=== PATIENT | male | born 1965 | race Caucasian/White ===

== ENCOUNTER 2023-06-05 16:40 | Inpatient (IN) | payer OTHER ==
[~2023-06-05] VITALS: Ht 170.2 cm; Wt 66.6 kg
[2023-06-05 17:17] LABS: BASOPHILS % (AUTO) 0.5 % (0.0-2.0); EOSINOPHILS % (AUTO) 0 % (1.0-6.0); HEMATOCRIT 43.1 % (41-53); HEMOGLOBIN 14.7 g/dL (13.5-17.5); LYMPHOCYTES # (AUTO) 0.9 K/uL (1.0-4.8); MEAN CORPUSCULAR HEMOGLOBIN 28.9 pg (26.0-34.0); MEAN CORPUSCULAR HGB CONC 34.2 G/dL (31.0-37.0); MEAN CORPUSCULAR VOLUME 85 fL (80-100); MONOCYTES # (AUTO) 0.4 K/uL (0.1-1.0); MONOCYTES % (AUTO) 3.9 % (2.0-9.0); NEUTROPHILS # (AUTO) 7.9 K/uL (1.8-7.7); PLATELET COUNT (AUTO) 321 K/uL (150-450); RED CELL DISTRIBUTION WIDTH 13.8 % (11.5-14.5); WHITE BLOOD COUNT (AUTO) 9.2 K/uL (4.5-11.0)
[2023-06-05 17:19] LABS: NEUTROPHILS % (AUTO) 85.6 % (40.0-70.0)
[2023-06-05 17:25] LABS: ANION GAP 10 mmol/L (8-16); CALCIUM, TOTAL 9.5 mg/dL (8.8-10.5); CARBON DIOXIDE 30 mmol/L (22-29); CHLORIDE 98 mmol/L (98-107); CREATININE 0.62 mg/dL (0.60-1.30); GLOMERULAR FILTR. RATE CALC > 60 mL/min (>60); GLUCOSE,RANDOM 112 mg/dL (70-110); POTASSIUM 3.5 mmol/L (3.5-5.1); SODIUM SERUM 138 mmol/L (136-145); UREA NITROGEN, BLOOD 13 mg/dL (7-18)
[2023-06-05] MEDS ORDERED: SERT-439 PO (17:29)
[2023-06-05] MEDS ORDERED: SOFO1TAB3 PO (17:29)
[2023-06-05] MEDS ORDERED: TRAZ-252 PO (17:29)
[2023-06-05] MEDS ORDERED: SERT-438 PO (17:29)
[2023-06-05 17:31] LABS: ALANINE AMINOTRANSFERASE 14 U/L (12-78); ALBUMIN 3.6 g/dL (3.4-5.0); ALKALINE PHOSPHATASE 132 U/L (46-116); ASPARTATE AMINOTRANSFERASE 16 U/L (15-37); BILIRUBIN,TOTAL 0.7 mg/dL (0.1-1.0); TOTAL PROTEIN, SERUM 8.5 g/dL (6.4-8.2)
[2023-06-05 17:43] LABS: LACTIC ACID 1.3 mmol/L (0.4-2.0)
[2023-06-05 17:49] LABS: COVID AG,FIA SOURCE NASAL SWAB
[2023-06-05 18:09] LABS: SARS-COV2 (COVID) ANTIGEN,FIA Negative (Negative)
[2023-06-05 18:11] LABS: ALCOHOL, BLOOD (SERUM) < 3 mg/dL (0-10)
[2023-06-05] MEDS ORDERED: ACETAMINOPHEN 325 MG TABLET PO PRN ×3 (18:15→19:45)
[2023-06-05] MEDS: KETOROLAC TROMETHAMINE 30 MG/ML VIAL IVP ONE (18:15)
[2023-06-05] MEDS: ACETAMINOPHEN 500 MG TABLET PO ONE (18:15)
[2023-06-05] MEDS: ONDANSETRON HCL 4 MG/2 ML VIAL IVP ONE (18:15)
[2023-06-05] MEDS ORDERED: ONDANSETRON HCL 4 MG/2 ML VIAL IVP PRN ×2 (18:15→19:45)
[2023-06-05] MEDS ORDERED: 0.9% SODIUM CHLORIDE 10 ML SYRINGE IVP PRN (18:15)
[2023-06-05] MEDS: HydrOXYzine HCL 25 MG TABLET PO ONE (18:55)
[2023-06-05] MEDS ORDERED: PROMETHAZINE HCL 25 MG TABLET PO PRN (19:45)
[2023-06-05] MEDS ORDERED: IPRATROPIUM BROMIDE 0.5 MG/2.5 ML NEB SOLUTION NEB PRN (19:45)
[2023-06-05] MEDS ORDERED: LOPERAMIDE HCL 2 MG/15 ML SUSPENSION UDCUP PO PRN (19:45)
[2023-06-05] MEDS ORDERED: HYDROCODONE/ACETAMINOPHEN 5-325 MG TABLET PO PRN (19:45)
[2023-06-05] MEDS ORDERED: CloNIDine HCL 0.1 MG TABLET PO PRN (19:45)
[2023-06-05] MEDS ORDERED: BACLOFEN 10 MG TABLET PO PRN (19:45)
[2023-06-05] MEDS ORDERED: MORPHINE SULFATE 2 MG/ML SYRINGE IVP PRN (19:45)
[2023-06-05] MEDS ORDERED: MAGNESIUM HYDROXIDE SUSPENSION 30 ML UDCUP PO PRN (19:45)
[2023-06-05] MEDS ORDERED: LORazepam 2 MG/ML VIAL IVP PRN (19:45)
[2023-06-05] MEDS ORDERED: MAG HYDROX/ALUMINUM HYD/SIMETH ES 30 ML SUSPENSION UDCUP PO PRN (19:45)
[2023-06-05] MEDS ORDERED: LORazepam 1 MG TABLET PO PRN (19:45)
[2023-06-05] MEDS ORDERED: TraZODone HCL 50 MG TABLET PO PRN (19:45)
[2023-06-05] MEDS ORDERED: ALBUTEROL SULFATE 2.5 MG/0.5 ML NEB SOLUTION NEB PRN (19:45)
[2023-06-05] MEDS ORDERED: DICYCLOMINE HCL 10 MG CAPSULE PO PRN (19:45)
[2023-06-05] MEDS ORDERED: BISACODYL 10 MG RECTAL RECTAL SUPPOSITORY PR PRN (19:45)
[2023-06-05 20:35] LABS: ALCOHOL, URINE DRUG SCREEN NEGATIVE (NEGATIVE); AMPHET/METH SCREEN,URINE POSITIVE (NEGATIVE); BARBITURATE SCREEN, URINE NEGATIVE (NEGATIVE); BENZODIAZEPINES SCREEN,URINE POSITIVE (NEGATIVE); CANNABINOID SCREEN,URINE NEGATIVE (NEGATIVE); COCAINE SCREEN,URINE NEGATIVE (NEGATIVE); METHADONE SCREEN, URINE NEGATIVE (NEGATIVE); OPIATE SCREEN,URINE POSITIVE (NEGATIVE); PHENCYCLIDINE SCREEN,URINE NEGATIVE (NEGATIVE)
[2023-06-05 21:04] VITALS: BP 125/76; PULSE 64; RESP 19; TEMP 98
[2023-06-05] MEDS: SODIUM CHLORIDE 0.45% 1,000 ML IV SCH (23:07)
[2023-06-05] MEDS: TraZODone HCL 50 MG TABLET PO SCH (23:07)
[2023-06-05] MEDS: HEPARIN SODIUM,PORCINE 5,000 UNITS/ML VIAL SQ SCH (23:07)
[2023-06-06 01:01] VITALS: BP 125/81; PULSE 64; RESP 19; TEMP 97.6
[2023-06-06] MEDS: ZOLPIDEM TARTRATE 5 MG TABLET PO PRN (01:01)
[2023-06-06] MEDS: HydrOXYzine PAMOATE 50 MG CAPSULE PO PRN (01:10)
[2023-06-06 04:47] VITALS: BP 152/91; PULSE 54; RESP 20; TEMP 98.5
[2023-06-06 08:09] VITALS: BP 126/72; PULSE 78; RESP 18; TEMP 98.2
[2023-06-06] MEDS: PANTOPRAZOLE SODIUM 40 MG DR TABLET PO SCH (08:09)
[2023-06-06] MEDS: MULTIVITAMINS, THERAPEUTIC TABLET PO SCH (08:09)
[2023-06-06] MEDS: FOLIC ACID 1 MG TABLET PO SCH (08:09)
[2023-06-06] MEDS: THIAMINE 100 MG TABLET PO SCH (08:09)
[2023-06-06] MEDS ORDERED: [UNRECOGNIZED DRUG - OTHER] PO SCH (09:00)
[2023-06-06] MEDS: SERTRALINE HCL 50 MG TABLET PO SCH (09:36)
[2023-06-06 14:13] LABS: BASOPHILS % (AUTO) 0.3 % (0.0-2.0); EOSINOPHILS % (AUTO) 0 % (1.0-6.0); HEMATOCRIT 39.8 % (41-53); HEMOGLOBIN 13.8 g/dL (13.5-17.5); LYMPHOCYTES # (AUTO) 1.1 K/uL (1.0-4.8); LYMPHOCYTES % (AUTO) 15.9 % (22.0-44.0); MEAN CORPUSCULAR HGB CONC 34.6 G/dL (31.0-37.0); MEAN CORPUSCULAR VOLUME 84 fL (80-100); MONOCYTES # (AUTO) 0.3 K/uL (0.1-1.0); MONOCYTES % (AUTO) 3.9 % (2.0-9.0); NEUTROPHILS # (AUTO) 5.6 K/uL (1.8-7.7); NEUTROPHILS % (AUTO) 79.9 % (40.0-70.0); PLATELET COUNT (AUTO) 307 K/uL (150-450); RED BLOOD CELL COUNT(AUTO) 4.75 MIL/uL (4.50-5.90); RED CELL DISTRIBUTION WIDTH 13.8 % (11.5-14.5)
[2023-06-06 14:31] LABS: ALANINE AMINOTRANSFERASE 13 U/L (12-78); ALKALINE PHOSPHATASE 108 U/L (46-116); ANION GAP 10 mmol/L (8-16); ASPARTATE AMINOTRANSFERASE 14 U/L (15-37); BILIRUBIN,TOTAL 0.7 mg/dL (0.1-1.0); CALCIUM, TOTAL 8.7 mg/dL (8.8-10.5); CARBON DIOXIDE 27 mmol/L (22-29); CHLORIDE 100 mmol/L (98-107); CREATININE 0.62 mg/dL (0.60-1.30); GLOMERULAR FILTR. RATE CALC > 60 mL/min (>60); GLUCOSE,RANDOM 97 mg/dL (70-110); SODIUM SERUM 137 mmol/L (136-145); TOTAL PROTEIN, SERUM 7.3 g/dL (6.4-8.2); UREA NITROGEN, BLOOD 12 mg/dL (7-18)
[2023-06-06 14:34] LABS: POTASSIUM 2.8 mmol/L (3.5-5.1)
[2023-06-06] MEDS ORDERED: SODIUM CHLORIDE 0.9% 250 ML IV ONE (14:55)
[2023-06-06] MEDS: POTASSIUM CHL 10 MEQ/WATER 50 ML IV SCH (15:03)
[2023-06-06] MEDS: POTASSIUM CHLORIDE 20 MEQ ER TABLET PO ONE (15:03)
[2023-06-06 20:17] VITALS: BP 129/72; PULSE 68; RESP 20; TEMP 98.5
[2023-06-07 03:50] VITALS: BP 137/76; PULSE 65; RESP 18; TEMP 97.9
[2023-06-07 08:48] VITALS: BP 134/86; PULSE 74; RESP 18; TEMP 97.8
[2023-06-07] MEDS: METHADONE HCL 10 MG TABLET PO ONE (13:35)
[2023-06-07 20:00] VITALS: BP 124/73; PULSE 57; RESP 18; TEMP 98.5
[2023-06-08 04:14] VITALS: BP 126/76; PULSE 61; RESP 20; TEMP 98.1
[2023-06-08 08:04] VITALS: BP 123/66; PULSE 63; RESP 20; TEMP 97.4
[2023-06-08] MEDS: METHADONE HCL 10 MG TABLET PO ONE (08:28)
[2023-06-08 19:40] VITALS: BP 124/68; PULSE 68; RESP 20; TEMP 98.6
[2023-06-09 04:56] VITALS: BP 114/75; PULSE 70; RESP 20; TEMP 98.1
[2023-06-09] MEDS: METHADONE HCL 10 MG TABLET PO ONE (08:22)
[2023-06-09 09:52] VITALS: BP 119/72; PULSE 62; RESP 20; TEMP 98.7
[2023-06-09 16:23] VITALS: BP 121/73; PULSE 67; RESP 20; TEMP 98.6
[2023-06-09 20:43] VITALS: BP 114/62; PULSE 68; RESP 20; TEMP 98.3
[2023-06-10 04:27] VITALS: BP 120/72; PULSE 67; RESP 20; TEMP 98.3
[2023-06-10] MEDS: METHADONE HCL 10 MG TABLET PO ONE (08:16)
[2023-06-10 08:21] VITALS: BP 122/70; PULSE 66; RESP 18; TEMP 98
[2023-06-10 10:14] LABS: ALANINE AMINOTRANSFERASE 18 U/L (12-78); ALKALINE PHOSPHATASE 104 U/L (46-116); ANION GAP 11 mmol/L (8-16); ASPARTATE AMINOTRANSFERASE 24 U/L (15-37); BILIRUBIN,TOTAL 0.6 mg/dL (0.1-1.0); CARBON DIOXIDE 27 mmol/L (22-29); CHLORIDE 101 mmol/L (98-107); CREATININE 0.74 mg/dL (0.60-1.30); GLOMERULAR FILTR. RATE CALC > 60 mL/min (>60); GLUCOSE,RANDOM 95 mg/dL (70-110); POTASSIUM 3.2 mmol/L (3.5-5.1); SODIUM SERUM 139 mmol/L (136-145); TOTAL PROTEIN, SERUM 7.4 g/dL (6.4-8.2); UREA NITROGEN, BLOOD 14 mg/dL (7-18)
[2023-06-10 12:05] LABS: BASOPHILS % (AUTO) 0.4 % (0.0-2.0); EOSINOPHILS % (AUTO) 0.7 % (1.0-6.0); HEMATOCRIT 45.7 % (41-53); HEMOGLOBIN 15.9 g/dL (13.5-17.5); LYMPHOCYTES # (AUTO) 1.7 K/uL (1.0-4.8); LYMPHOCYTES % (AUTO) 23.6 % (22.0-44.0); MEAN CORPUSCULAR HEMOGLOBIN 28.7 pg (26.0-34.0); MEAN CORPUSCULAR HGB CONC 34.7 G/dL (31.0-37.0); MEAN CORPUSCULAR VOLUME 83 fL (80-100); MONOCYTES # (AUTO) 0.4 K/uL (0.1-1.0); MONOCYTES % (AUTO) 5.2 % (2.0-9.0); NEUTROPHILS % (AUTO) 70.1 % (40.0-70.0); PLATELET COUNT (AUTO) 246 K/uL (150-450); RED BLOOD CELL COUNT(AUTO) 5.53 MIL/uL (4.50-5.90); WHITE BLOOD COUNT (AUTO) 7.1 K/uL (4.5-11.0)
[2023-06-10] MEDS: POTASSIUM CHLORIDE 20 MEQ ER TABLET PO ONE (12:32)
[2023-06-10 20:18] VITALS: BP 123/75; PULSE 68; RESP 18; TEMP 99.2
[2023-06-11 05:10] VITALS: BP 108/72; PULSE 83; RESP 18; TEMP 97.7
[2023-06-11 08:36] VITALS: BP 116/72; PULSE 67; RESP 18; TEMP 97.5
== END 2023-06-11 18:00 | DRG 897 ==
LOC: EMS 16:47 → 6S 18:56
PROVIDERS: ADMIT Hospitalist; ATTEND Hospitalist
DX: F11.13 Opioid abuse with withdrawal (principal); E44.0 Moderate protein-calorie malnutrition; F10.10 Alcohol abuse, uncomplicated; F55.8 Abuse of other non-psychoactive substances; Z20.822 Contact with and (suspected) exposure to COVID-19; F13.10 Sedative, hypnotic or anxiolytic abuse, uncomplicated; E87.6 Hypokalemia; F17.200 Nicotine dependence, unspecified, uncomplicated; F32.A Depression, unspecified; Z79.899 Other long term (current) drug therapy; Z68.23 Body mass index [BMI] 23.0-23.9, adult
CPT/HCPCS: 80053; 80307; 83605; 83735; 84132; 85025; 87040; 99285; G0480; J1644; J1885; J2405; J3480; J7050